=== PATIENT | male | born 1955 | race Hispanic/Latino ===

== ENCOUNTER 2023-10-05 09:55 | Emergency (ER) | payer MEDICARE ==
[~2023-10-05] VITALS: Ht 167.6 cm; Wt 83.9 kg
[2023-10-05 10:23] LABS: BASOPHILS # (AUTO) 0.05 K/uL (0.00-0.20); BASOPHILS % (AUTO) 0.7 % (0.0-5.0); EOSINOPHILS # (AUTO) 0.19 K/uL (0.00-0.70); EOSINOPHILS % (AUTO) 2.6 % (0.0-8.0); HEMATOCRIT 46.2 % (42-54); IMMATURE GRANULOCYTE ABSOLUTE 0.02 K/uL (0-1); LYMPHOCYTES # (AUTO) 2.4 K/uL (1.0-4.8); MEAN CORPUSCULAR HEMOGLOBIN 30.1 pg (27.0-33.0); MEAN CORPUSCULAR HGB CONC 33.8 g/dL (32.0-36.0); MEAN CORPUSCULAR VOLUME 89.2 fL (79-99); MONOCYTES # (AUTO) 0.6 K/uL (0.1-1.0); MONOCYTES % (AUTO) 7.7 % (3.0-13.0); NEUTROPHILS # (AUTO) 4.2 K/uL (1.8-7.7); NEUTROPHILS % (AUTO) 56.7 % (40.0-77.0); PLATELET COUNT (AUTO) 140 K/uL (130-400); RED BLOOD CELL COUNT(AUTO) 5.18 MIL/uL (4.50-6.20); RED CELL DISTRIBUTION WIDTH 14.1 % (11.0-15.5); WHITE BLOOD COUNT (AUTO) 7.4 K/uL (4.8-10.8)
[2023-10-05] MEDS: 0.9%NACL 1000ML 1,000 ML IV ONE (10:29)
[2023-10-05 10:36] LABS: INR <= 0.93 (0.85-1.15)
[2023-10-05 10:37] LABS: PARTIAL THROMBOPLASTIN TIME 26.2 SEC (26.3-35.5)
[2023-10-05 10:43] LABS: CREATININE 1.2 mg/dL (0.5-1.3); POTASSIUM 4.1 mmol/L (3.5-5.1)
[2023-10-05 10:49] LABS: ALBUMIN 3.7 g/dL (3.5-5.0); BILIRUBIN,DIRECT 0.2 mg/dL (0.0-0.3); BILIRUBIN,TOTAL 0.7 mg/dL (0.2-1.0); TOTAL PROTEIN, SERUM 7.1 g/dL (6.0-8.3)
[2023-10-05] MEDS: MORPHINE 4 MG SYG IVP ONE (11:26)
[2023-10-05] MEDS: MORPHINE 4 MG SYG ONE (11:27)
[2023-10-05] MEDS ORDERED: MORPHINE 2 MG SYG IVP ONE (11:30)
[2023-10-05] MEDS: TRANEXAMIC ACID 1000MG/10ML TP STA (11:42)
[2023-10-05] MEDS: TRANEXAMIC ACID 1000MG/10ML ONE (11:43)
[2023-10-05 12:33] LABS: HEMATOCRIT 38.5 % (42-54)
[2023-10-05] MEDS: CEFTRIAXONE 1G VIAL IVPB ONE (14:36)
[2023-10-05] MEDS: ACETAMINOPHEN 500 MG TABLET PO ONE (14:38)
[2023-10-05 18:26] VITALS: BP 135/46; PULSE 77; RESP 12
[2023-10-05 18:26] LABS: HEMATOCRIT 38.3 % (42-54)
[2023-10-05] MEDS ORDERED: ONDANSETRON 4MG INJ IVP ONE (18:30)
== END 2023-10-05 18:38 ==
LOC: EDH 09:55
DX: R04.0 Epistaxis (principal); R55 Syncope and collapse; I10 Essential (primary) hypertension; E78.00 Pure hypercholesterolemia, unspecified
CPT/HCPCS: 99285; 96374; 30905; 96361; 96375; 80076; 84484; 80048; 85025; 85610; 85730; 86850; 86900; 86901; 82948; 36415; 93005; 85014 ×2; 85018 ×2; J3490; J0696; J2270

== ENCOUNTER → 2024-03-11 | Outpatient (CLI) | payer MEDICARE ==
[2024-03-11 09:27] LABS: CREATININE 1.2 mg/dL (0.5-1.3)
== END | disposition home or self-care (01) ==
LOC: LAB 08:34
PROVIDERS: ATTEND Internal Medicine Cardiovascular Disease
DX: I73.89 Other specified peripheral vascular diseases (principal)
CPT/HCPCS: 36415; 82565; 84520

== ENCOUNTER → 2024-03-15 | Outpatient (CLI) | payer MEDICARE ==
[~2024-03-15] MED LIST: IOHEXOL-350 75 ML VIAL IV ONE
--- NOTE | 2024-03-15 13:46 | HMCIMG ---
CT ANGIO ABD AORTA W RUNOFF REASON: PVD COMPARISON: None TECHNIQUE: Axial images are obtained from lung bases to the feet before and during IV contrast infusion, 100 cc Omnipaque 350. 2-D and 3-D multiplanar reconstruction images were performed. FINDINGS: Vascular images demonstrate moderate atherosclerotic change of the abdominal aorta. Mesenteric vessels appear patent as does the right renal artery. There are 2 left renal arteries, a small superior artery and a moderate sized artery more inferiorly. The moderate-sized artery appears stenotic, 60-80% due to calcified plaque. There is severe atherosclerotic change in both common iliac arteries. There is 80-90% narrowing of the right common iliac artery due to a combination of calcified and noncalcified plaque, there is 50-70% stenosis of the left common iliac artery. Both the external iliac arteries are patent as are both common femoral arteries. Right leg runoff shows mild atherosclerotic change in the superficial femoral and popliteal arteries without stenosis. Trifurcation vessels are intact. There is three-vessel runoff to the ankle. Posterior tibial and dorsalis pedis arteries appear patent in the foot. Left leg runoff also shows only mild atherosclerotic change in the superficial femoral and popliteal arteries. Trifurcation vessels are intact. There is three-vessel runoff to the ankle with posterior tibial and dorsalis pedis runoff to the foot. Nonvascular imaging shows moderate fatty infiltration of the liver. There is moderate hydronephrosis of the left kidney, this may represent a ureteropelvic junction obstruction, the ureter is not dilated. There is a focal 11 mm stone in the left renal pelvis and an additional 13 mm stone in a lower pole calyx. Right kidney appears unremarkable. Bowel loops appear normal. There is no retroperitoneal or pelvic lymphadenopathy. Pelvic soft tissues appear normal. IMPRESSION: 1. Atherosclerotic changes in the aorta with moderate stenosis of the larger of 2 left renal arteries. 2. Severe stenosis of the right common iliac artery, 90% or greater, there is 50-70% stenosis proximal left common iliac artery. 3. Mild atherosclerotic changes in both lower extremities, however there is three-vessel runoff to the ankle and two-vessel runoff to the feet on both sides. 4. Moderate left hydronephrosis, left ureter is not dilated, there is an 11 mm stone in the left renal pelvis and a 13 mm stone lower pole calyx left kidney.
== END | disposition home or self-care (01) ==
LOC: RAH 10:50
PROVIDERS: ATTEND Internal Medicine Cardiovascular Disease
DX: I70.203 Unspecified atherosclerosis of native arteries of extremities, bilateral legs (principal); I70.0 Atherosclerosis of aorta; I73.89 Other specified peripheral vascular diseases; K76.0 Fatty (change of) liver, not elsewhere classified; N13.30 Unspecified hydronephrosis; N20.0 Calculus of kidney
CPT/HCPCS: 75635; Q9967